=== PATIENT | male | born 1955 | race Caucasian/White ===

== ENCOUNTER 2022-01-18 07:44 | Outpatient (REF) | payer MEDICARE, SELFPAY ==
--- NOTE | ~2022-01-18 | MR_ITS ---
EXAMINATION: MRI BRAIN WITHOUT CONTRAST CLINICAL INFORMATION: Left-sided weakness. COMPARISON: No relevant prior imaging. TECHNIQUE: Multiplanar MR imaging of the brain was performed without contrast. FINDINGS: There are scattered nonspecific foci of T2 FLAIR signal hyperintensity involving the periventricular white matter. No acute territorial infarct. No pathological magnetic susceptibility artifact. Intracranial vascular flow voids are maintained. There is no intracranial mass effect or midline shift. No abnormal extra-axial collection. Lateral and third ventricles are normal. No hydrocephalus. Midline structures including the cervicomedullary junction are normal. No acute bone marrow signal changes. There is no mastoid or middle ear effusion. Moderate paranasal sinus disease primarily affecting the ethmoid air cells and the alveolar recess of the right maxillary sinus. Globes and orbits are symmetric. MR/MR head/brain wo con IMPRESSION: There are chronic small vessel ischemic changes primarily involving the periventricular white matter. Otherwise unremarkable examination. No evidence of acute territorial infarct or hemorrhage.
== END 2022-01-18 07:45 | disposition home or self-care (01) ==
LOC: HO.MRI 07:44
PROVIDERS: Visit Provider Physician Assistant Medical
DX: I63.40 Cerebral infarction due to embolism of unspecified cerebral artery (principal)
CPT/HCPCS: 70551